=== PATIENT | male | born 2000 | race Caucasian/White ===

== ENCOUNTER 2022-09-07 18:12 | Inpatient (IN) ==
[2022-09-07] MEDS ORDERED: Ondansetron 4 MG/2 ML VIAL IVP PRN (21:10)
[2022-09-07] MEDS ORDERED: Naloxone 0.4 MG/ML INJ IVP PRN (21:10)
[2022-09-07] MEDS ORDERED: *HR* Dextrose 50 % in Water (Syg) 50 ML SYRINGE IVP PRN (22:35)
[2022-09-07] MEDS ORDERED: Dextrose Gel 15 GM/37.5 ML TUBE PO PRN ×2 (22:35)
[2022-09-07] MEDS ORDERED: D5% in Water 1,000 ML IVC PRN (22:35)
[2022-09-08 02:02] LABS: Basophils # 0.1 K/mcL (0.0-0.2); Basophils % 0.7 %; Eosinophils # 0.3 K/mcL (0.0-0.6); Eosinophils % 1.7 %; Hematocrit 20.4 % (37.5-50.1); Hemoglobin 6.4 g/dL (12.9-16.9); Immature Granulocytes % 1.7 % (0-4); Lymphocytes # 1.1 K/mcL (0.6-4.6); Lymphocytes % 7.1 %; Mean Corpuscular HGB Conc 31.4 g/dL (31.6-35.5); Mean Corpuscular Hemoglobin 30.5 pg (28.0-33.3); Mean Corpuscular Volume 97.1 fL (83.0-100.0); Mean Platelet Volume 8.8 fL (9.4-12.4); Monocytes # 1.3 K/mcL (0.0-1.3); Monocytes % 8.4 %; Neutrophils # 12.5 K/mcL (1.6-8.9); Platelet Count 518 K/mcL (140-400); Segmented Neutrophils % 80.4 %; White Blood Count 15.5 K/mcL (4.3-11.1)
[2022-09-08 02:14] LABS: INR 1.5; Prothrombin Time 16.4 Seconds (9.4-12.1)
[2022-09-08 02:25] LABS: Calcium 8.5 mg/dL (8.6-10.3); Magnesium 1.8 mg/dL (1.6-2.6); Phosphorous 5.3 mg/dL (2.7-4.5); Potassium 5.2 mEq/L (3.5-5.1)
[2022-09-08 02:38] LABS: Thyroid Stimulating Hormone 0.959 mcIU/mL (0.340-5.600)
[2022-09-08] MEDS ORDERED: 0.9 % Sodium Chloride 250 ML ONE ×2 (02:58→15:19)
[2022-09-08] MEDS ORDERED: Cefepime HCl 2,000 MG in 0.9 % Sodium Chloride 10 ML IVP SCH ×3 (06:00→16:00)
[2022-09-08] MEDS ORDERED: MetroNIDAZOLE 500 MG/100 ML 500 MG/100 ML BAG IVPB SCH (08:00)
[2022-09-08] MEDS: hydrALAZINE 25 MG TABLET PO SCH ×3 (08:36→21:03)
[2022-09-08] MEDS ORDERED: Ethyl Chloride Spray Bottle (104 SPRAY/BOTTLE) TP PRN (08:55)
[2022-09-08] MEDS ORDERED: 0.9 % Sodium Chloride 250 ML IVC PRN (08:55)
[2022-09-08] MEDS ORDERED: 0.9 % Sodium Chloride 2,000 ML PRIME SCH (09:00)
[2022-09-08] MEDS: amLODIPine 5 MG TABLET PO SCH (09:38)
[2022-09-08] MEDS: Vitamin B Complex/Vit C/Vit E 1 EACH TABLET PO SCH (09:38)
[2022-09-08] MEDS: SODIUM ZIRCONIUM CYCLOSILICATE 5 GM POWD.PACK PO SCH (09:38)
[2022-09-08] MEDS: Acetaminophen 325 MG TABLET PO PRN (15:43)
[2022-09-08] MEDS: MetroNIDAZOLE 500 MG/100 ML 500 MG/100 ML BAG IVPB SCH ×2 (15:48→23:49)
[2022-09-08] MEDS: *HR* OxyCODONE Immed Rel 5 MG TABLET PO PRN (16:00)
[2022-09-08] MEDS: *HR* HYDROcodone/Acet 5/325 mg TABLET PO PRN (21:04)
[2022-09-08 21:22] LABS: Hematocrit 26.1 % (37.5-50.1); Hemoglobin 8.7 g/dL (12.9-16.9)
[2022-09-09] MEDS: Vitamin B Complex/Vit C/Vit E 1 EACH TABLET PO SCH (09:00)
[2022-09-09] MEDS: MetroNIDAZOLE 500 MG/100 ML 500 MG/100 ML BAG IVPB SCH ×3 (09:00→23:25)
[2022-09-09] MEDS: SODIUM ZIRCONIUM CYCLOSILICATE 5 GM POWD.PACK PO SCH (09:01)
[2022-09-09] MEDS: *HR* OxyCODONE Immed Rel 5 MG TABLET PO PRN (09:01)
[2022-09-09] MEDS: hydrALAZINE 25 MG TABLET PO SCH ×3 (09:02→21:11)
[2022-09-09] MEDS: amLODIPine 5 MG TABLET PO SCH (09:02)
[2022-09-09] MEDS: Acetaminophen 325 MG TABLET PO PRN ×2 (09:58→23:26)
[2022-09-09 16:54] LABS: Calcium 8.6 mg/dL (8.6-10.3); Potassium 4.4 mEq/L (3.5-5.1)
[2022-09-09] MEDS: Cefepime HCl 1,000 MG in 0.9 % Sodium Chloride 10 ML IVP SCH (17:13)
[2022-09-09] MEDS: *HR* HYDROcodone/Acet 5/325 mg TABLET PO PRN (21:37)
[2022-09-10] MEDS: MetroNIDAZOLE 500 MG/100 ML 500 MG/100 ML BAG IVPB SCH ×2 (07:59→16:38)
[2022-09-10] MEDS: Vitamin B Complex/Vit C/Vit E 1 EACH TABLET PO SCH (08:01)
[2022-09-10] MEDS: hydrALAZINE 25 MG TABLET PO SCH ×3 (08:02→21:07)
[2022-09-10] MEDS: amLODIPine 5 MG TABLET PO SCH (08:02)
[2022-09-10] MEDS: SODIUM ZIRCONIUM CYCLOSILICATE 5 GM POWD.PACK PO SCH (08:06)
[2022-09-10] MEDS ORDERED: 0.9 % Sodium Chloride 500 ML ONE (09:47)
[2022-09-10] MEDS ORDERED: *HR* FentaNYL (PF) 100 MCG/2 ML VIAL IVP ONE (09:53)
[2022-09-10] MEDS ORDERED: *HR* Midazolam HCl 2 MG/2 ML VIAL IVP ONE (09:53)
[2022-09-10] MEDS: *HR* HYDROcodone/Acet 5/325 mg TABLET PO PRN ×2 (13:50→21:07)
[2022-09-10 14:02] LABS: Basophils # 0.1 K/mcL (0.0-0.2); Basophils % 0.7 %; Eosinophils # 0.4 K/mcL (0.0-0.6); Eosinophils % 2.1 %; Hematocrit 23.1 % (37.5-50.1); Immature Granulocytes % 0.8 % (0-4); Lymphocytes % 5.4 %; Mean Corpuscular HGB Conc 30.3 g/dL (31.6-35.5); Mean Corpuscular Hemoglobin 29.2 pg (28.0-33.3); Mean Corpuscular Volume 96.3 fL (83.0-100.0); Mean Platelet Volume 8.9 fL (9.4-12.4); Monocytes # 1.3 K/mcL (0.0-1.3); Monocytes % 7.1 %; Neutrophils # 15.1 K/mcL (1.6-8.9); Platelet Count 469 K/mcL (140-400); Red Cell Distribution Width 16.1 % (11.5-14.5); Segmented Neutrophils % 83.9 %
[2022-09-10 14:15] LABS: Calcium 8.8 mg/dL (8.6-10.3); Magnesium 2.2 mg/dL (1.6-2.6); Potassium 4.1 mEq/L (3.5-5.1)
[2022-09-10] MEDS: Cefepime HCl 1,000 MG in 0.9 % Sodium Chloride 10 ML IVP SCH (16:37)
[2022-09-10] MEDS: *HR* OxyCODONE Immed Rel 5 MG TABLET PO PRN (16:50)
[2022-09-10 18:09] LABS: Estimated Average Glucose 103 mg/dl; Hemoglobin A1C 5.2 %
[2022-09-10 22:25] LABS: Folate > 22.3 ng/mL (3.0-16.0); Vitamin B12 > 1500 pg/mL (250-1100)
[2022-09-11] MEDS: *HR* OxyCODONE Immed Rel 5 MG TABLET PO PRN ×2 (00:47→13:46)
[2022-09-11] MEDS: MetroNIDAZOLE 500 MG/100 ML 500 MG/100 ML BAG IVPB SCH ×3 (00:47→15:46)
[2022-09-11 04:30] LABS: Basophils # 0.1 K/mcL (0.0-0.2); Basophils % 0.7 %; Eosinophils # 0.5 K/mcL (0.0-0.6); Eosinophils % 2.7 %; Hemoglobin 7.4 g/dL (12.9-16.9); Immature Granulocytes % 0.6 % (0-4); Lymphocytes # 1.1 K/mcL (0.6-4.6); Mean Corpuscular HGB Conc 30.8 g/dL (31.6-35.5); Mean Corpuscular Hemoglobin 29.7 pg (28.0-33.3); Mean Corpuscular Volume 96.4 fL (83.0-100.0); Monocytes # 1.4 K/mcL (0.0-1.3); Monocytes % 7.8 %; Neutrophils # 14.4 K/mcL (1.6-8.9); Platelet Count 507 K/mcL (140-400); Red Blood Count 2.49 M/mcL (4.19-5.50); Segmented Neutrophils % 82.2 %; White Blood Count 17.6 K/mcL (4.3-11.1)
[2022-09-11 04:48] LABS: Calcium 8.3 mg/dL (8.6-10.3); Potassium 4.2 mEq/L (3.5-5.1)
[2022-09-11] MEDS: Vitamin B Complex/Vit C/Vit E 1 EACH TABLET PO SCH (08:00)
[2022-09-11] MEDS: hydrALAZINE 25 MG TABLET PO SCH ×2 (08:03→15:45)
[2022-09-11] MEDS: SODIUM ZIRCONIUM CYCLOSILICATE 5 GM POWD.PACK PO SCH (08:04)
[2022-09-11] MEDS: amLODIPine 5 MG TABLET PO SCH (08:04)
[2022-09-11] MEDS ORDERED: 0.9 % Sodium Chloride 250 ML IVC PRN (08:08)
[2022-09-11] MEDS: *HR* HYDROcodone/Acet 5/325 mg TABLET PO PRN ×2 (08:14→17:29)
[2022-09-11 15:28] VITALS: BP 128/81; PULSE 96; TEMP 98.9; O2SAT 96
[2022-09-11] MEDS: Cefepime HCl 1,000 MG in 0.9 % Sodium Chloride 10 ML IVP SCH (15:46)
[2022-09-11 21:57] LABS: Hepatitis B Surface Antibody 210.55 mIU/mL
[2022-09-11 22:07] LABS: Hepatitis B Surface Antigen Nonreactive (Nonreactive)
== END 2022-09-11 18:07 | disposition home or self-care (01) | DRG 720 ==
LOC: 2ANU → OBSVTOIN 20:14 → SUATTDRO 20:14
PROVIDERS: ADMIT Internal Medicine; ATTEND Pharmacist
PROC: IRDRAIN (2022-09-10 12:00)